=== PATIENT | male | born 1985 ===

== ENCOUNTER 2021-03-11 02:38 | Emergency (ER) | payer OTHER ==
[2021-03-11 08:10] LABS: Absolute Lymphocytes (CBC) 2.3 K/uL (0.7-4.9); Basophils % 1.2 % (0-1.3); Hematocrit 51.8 % (39.6-49.0); Lymphocytes % 31.2 % (15.3-44.8); MPV 7.9 fL (7.6-11.3); RBC Red Blood Cell Count 5.73 M/uL (4.33-5.43)
[2021-03-11 08:44] LABS: ALT/SGPT 24 U/L (12-78); AST/SGOT 20 U/L (15-37); Albumin 4.4 g/dL (3.4-5.0); Alkaline Phosphatase 81 U/L (45-117); BUN Blood Urea Nitrogen 11 mg/dL (7-18); Bicarbonate 27 mmol/L (21-32); Bilirubin Direct 0.2 mg/dL (0-0.2); Bilirubin Total 1.1 mg/dL (0.2-1.0); Glucose Level 92 mg/dL (74-106); Magnesium 2.2 mg/dL (1.8-2.4); NT PRO-BNP 10 pg/mL (<125); Potassium 4.1 mmol/L (3.5-5.1); Sodium Level 141 mmol/L (136-145); Troponin (Emerg Dept Use Only) < 0.02 ng/mL (0.0-0.045)
--- NOTE | 2021-03-11 08:44 | RAD REPORT ---
EXAM DESCRIPTION: RAD - Chest Single View - 03/11/2021 8:30 am CLINICAL HISTORY: CHEST PAIN COMPARISON: No comparisons FINDINGS: No evidence of edema or pneumonia. The heart size is within normal limits.No acute osseous abnormality. No significant pleural effusions or pneumothorax. IMPRESSION: No acute cardiopulmonary disease.
--- NOTE | 2021-03-11 08:58 | EDPHYS ---
Physician Documentation [facility] Name: Fabricio Gamboa Jr Age: 35 yrs Sex: Male : 1985 Arrival Date: 03/11/2021 Time: 02:46 Bed 13 Private MD: ED Physician Triston Baptiste HPI: 03/11 07:46 This 35 yrs old Male presents to ER via Ambulatory with complaints of Chest Pressure, kb Dizziness. 07:46 The patient or guardian reports chest pain that is located primarily in the anterior kb chest wall, bilaterally. The pain does not radiate. Associated signs and symptoms: Pertinent positives: dizziness, shortness of breath. The chest pain is described as a heaviness. Duration: The patient or guardian reports multiple episodes, that are intermittent, with no pattern. Modifying factors: The symptoms are alleviated by nothing. the symptoms are aggravated by nothing. Severity of pain: At its worst the pain was moderate in the emergency department the pain has resolved. The patient has not experienced similar symptoms in the past. The patient has not recently seen a physician. Pt reports intermittent chest heaviness that started 2 weeks ago. States he sometimes has shortness of breath with it and other times has dizziness with it. Denies any cardiac history. Pt reports symptoms are resolved at this time. . Historical: - Allergies: 03:28 No Known Allergies; bb - Home Meds: 03:28 phentermine oral [Active]; bb 03:30 testosterone [Active]; bb - PMHx: 03:28 None; bb - PSHx: 03:28 None; bb - Immunization history:: Adult Immunizations up to date, Client reports having NOT received the Covid vaccine. - Social history:: Smoking status: Patient denies any tobacco usage or history of. Patient uses alcohol, occasionally. Patient/guardian denies using street drugs. ROS: 07:45 Constitutional: Negative for fever, chills, and weight loss. kb 07:45 Cardiovascular: Positive for chest pain, Negative for edema, orthopnea, palpitations, paroxysmal nocturnal dyspnea. 07:45 Respiratory: Positive for shortness of breath. 07:45 All other systems are negative. 07:46 Neuro: Positive for dizziness. kb Exam: 07:45 Constitutional: This is a well developed, well nourished patient who is awake, alert, kb and in no acute distress. Head/Face: Normocephalic, atraumatic. ENT: Moist Mucous membranes Cardiovascular: Regular rate and rhythm with a normal S1 and S2. No gallops, murmurs, or rubs. No pulse deficits. Respiratory: Respirations even and unlabored. No increased work of breathing, no retractions or nasal flaring. Abdomen/GI: Soft, non-tender. No distention Skin: Warm, dry with normal turgor. Normal color. MS/ Extremity: Pulses equal, no cyanosis. Neurovascular intact. Full, normal range of motion. Neuro: Awake and alert, GCS 15, oriented to person, place, time, and situation. Moves all extremities. Normal gait. Psych: Awake, alert, with orientation to person, place and time. Behavior, mood, and affect are within normal limits. 07:56 ECG was reviewed by the Attending Physician. Vital Signs: 03:25 BP 137 / 94; Pulse 77; Resp 16 S; Temp 98.2(O); Pulse Ox 100% on R/A; Weight 107.95 kg bb (R); Height 5 ft. 10 in. (177.80 cm) (R); Pain 0/10; 07:43 BP 141 / 91; Pulse 63; Resp 13; Pulse Ox 100% ; bp 03:25 Body Mass Index 34.15 (107.95 kg, 177.80 cm) bb MDM: 07:16 Patient medically screened. 07:45 Data reviewed: vital signs, nurses notes. Data interpreted: Pulse oximetry: on room air kb is 100 %. Interpretation: normal. 08:56 Counseling: I had a detailed discussion with the patient and/or guardian regarding: the kb historical points, exam findings, and any diagnostic results supporting the discharge/admit diagnosis, lab results, radiology results, the need for outpatient follow up, a family practitioner, to return to the emergency department if symptoms worsen or persist or if there are any questions or concerns that arise at home. ED course: Pt continues to be symptom free. Educated to follow up with PCP/cardiology for further evaluation. Verbal understanding received. . 03/11 05:44 Order name: SARS-COV-2 RT PCR; Complete Time: 07:14 EDMS 03/11 07:23 Order name: Basic Metabolic Panel 03/11 07:23 Order name: CBC with Diff; Complete Time: 08:15 kb 03/11 07:23 Order name: LFT's; Complete Time: 08:47 kb 08 07:23 Order name: Magnesium; Complete Time: 08:47 kb 08 07:23 Order name: NT PRO-BNP; Complete Time: 08:47 kb 08 07:23 Order name: PT-INR kb 08 07:23 Order name: Troponin (emerg Dept Use Only); Complete Time: 08:47 kb 08 07:23 Order name: XRAY Chest (1 view); Complete Time: 08:47 kb 08 07:23 Order name: EKG; Complete Time: 07:23 kb 08 07:23 Order name: Cardiac monitoring; Complete Time: 07:58 kb 08 07:23 Order name: EKG - Nurse/Tech; Complete Time: 07:58 kb 08 07:23 Order name: Basic Metabolic Panel; Complete Time: 08:47 EDMS 08 07:23 Order name: IV Saline Lock; Complete Time: 07:58 kb 08 07:23 Order name: Labs collected and sent; Complete Time: 07:58 kb 08 07:23 Order name: O2 Per Protocol; Complete Time: 07:58 kb 08 07:23 Order name: O2 Sat Monitoring; Complete Time: 07:58 kb EC:56 Rate is 63 beats/min. Rhythm is regular. QRS [place] is Normal. LA interval is normal at kb 146 msec. QRS interval is normal at 108 msec. QT interval is normal at 394 msec. Administered Medications: No medications were administered Disposition: 03/12 07:39 Co-signature as Attending Physician, Triston Baptiste MD I agree with the assessment and tess plan of care. Disposition Summary: 03/11/21 08:57 Discharge Ordered Location: Home kb Condition: Stable kb Diagnosis - Chest pain, unspecified kb Followup: kb - With: Emergency Department - When: As needed - Reason: Worsening of condition Followup: kb - With: Private Physician - When: 2 - 3 days - Reason: Recheck today's complaints, Continuance of care, Re-evaluation by your physician Discharge Instructions: - Discharge Summary Sheet kb - Nonspecific Chest Pain, Adult, [id number] kb Forms: - Medication Reconciliation Form kb - Thank You Letter kb - Antibiotic Education kb - Prescription Opioid Use kb - Work release form iw Signatures: Dispatcher [employer] Lucie Eugene, PROFESSOR OF MUSICOLOGY-C ED-Triston Bagley MD MD cha Ballard, Brenda RN RN bb Corrections: (The following items were deleted from the chart) 03/11 03:29 03:28 Home Meds: None; mervin jeffries
--- NOTE | 2021-03-11 08:58 | ER ---
Nurse's Notes [facility] Name: Fabricio Gamboa Jr Age: 35 yrs Sex: Male : 1985 Arrival Date: 03/11/2021 Time: 02:46 Bed 13 Private MD: Diagnosis: Chest pain, unspecified Presentation: 03/11 03:25 Chief complaint: Patient states: for the last week and a half he has had random bouts bb of shortness of breath, gets dizzy, chest feels heavy. Coronavirus screen: shortness of breath, Client presents with at least one sign or symptom that may indicate coronavirus-19. Standard/surgical mask placed on the client. Ebola Screen: No symptoms or risks identified at this time. Initial Sepsis Screen: Does the patient meet any 2 criteria? No. Patient's initial sepsis screen is negative. Does the patient have a suspected source of infection? No. Patient's initial sepsis screen is negative. Risk Assessment: Do you want to hurt yourself or someone else? Patient reports no desire to harm self or others. Onset of symptoms was March 01, 2021. 03:25 Method Of Arrival: Ambulatory bb 03:25 Acuity: VANESSA 3 bb Triage Assessment: 03:28 General: Appears in no apparent distress. Behavior is calm, cooperative. Pain: Denies bb pain. Neuro: Level of Consciousness is awake, alert, obeys commands, Oriented to person, place, time, situation. Cardiovascular: Capillary refill < 3 seconds Patient's skin is warm and dry. Respiratory: Respiratory effort is even, unlabored, Respiratory pattern is regular. GI: No signs and/or symptoms were reported involving the gastrointestinal system. Derm: Skin is pink, warm \T\ dry. Musculoskeletal: Circulation, motion, and sensation intact. Historical: - Allergies: 03:28 No Known Allergies; bb - Home Meds: 03:28 phentermine oral [Active]; bb 03:30 testosterone [Active]; bb - PMHx: 03:28 None; bb - PSHx: 03:28 None; bb - Immunization history:: Adult Immunizations up to date, Client reports having NOT received the Covid vaccine. - Social history:: Smoking status: Patient denies any tobacco usage or history of. Patient uses alcohol, occasionally. Patient/guardian denies using street drugs. Screenin:30 Abuse screen: Denies threats or abuse. Denies injuries from another. Nutritional bp screening: No deficits noted. Tuberculosis screening: No symptoms or risk factors identified. Fall Risk None identified. Assessment: 07:30 General: SEE TRIAGE NOTE. bp 09:24 Pain: Pain began 1 day ago. iw Vital Signs: 03:25 BP 137 / 94; Pulse 77; Resp 16 S; Temp 98.2(O); Pulse Ox 100% on R/A; Weight 107.95 kg bb (R); Height 5 ft. 10 in. (177.80 cm) (R); Pain 0/10; 07:43 BP 141 / 91; Pulse 63; Resp 13; Pulse Ox 100% ; bp 03:25 Body Mass Index 34.15 (107.95 kg, 177.80 cm) bb ED Course: 02:46 Patient arrived in ED. bp1 03:27 Triage completed. bb 03:28 Arm band placed on Patient placed in waiting room, Patient notified of wait time. Labs bb ordered per protocol. 07:15 Lucie Andrade FNP-C is [facility]. kb 07:15 Triston Baptiste MD is Attending Physician. kb 07:17 Gideon Chavez, JENNIFER is Primary Nurse. bp 07:30 Patient has correct armband on for positive identification. Bed in low position. Call bp light in reach. Side rails up X2. java j2ee technical lead on. Pulse ox on. NIBP on. 07:55 Inserted saline lock: 20 gauge in left antecubital area, using aseptic technique. Blood bp collected. 08:30 XRAY Chest (1 view) In Process Unspecified. EDMS 09:23 No provider procedures requiring assistance completed. IV discontinued, intact, iw bleeding controlled, No redness/swelling at site. Pressure dressing applied. Patient maintains SpO2 saturation greater than 95% on room air. Administered Medications: No medications were administered Outcome: 08:57 Discharge ordered by . kb 09:24 Discharged to home ambulatory. iw 09:24 Condition: good 09:24 Discharge instructions given to patient, Instructed on discharge instructions, follow up and referral plans. Demonstrated understanding of instructions, follow-up care. 09:24 Patient left the ED. iw Signatures: Dispatcher [employer] EDMS Lucie Andrade FNP-C FNP-Ckb Ballard, Brenda, RN Renetta Soto RN RN iw Peltier, Brian, RN RN bp Paniauga, Brittany [facility] Corrections: (The following items were deleted from the chart) 03:29 03:28 Home Meds: None; mervin jeffries
[2021-03-11 09:33] VITALS: TEMP 98.2; O2SAT 100
[2021-03-11 09:35] VITALS: BP 141/91
== END 2021-03-11 09:24 | disposition home or self-care (01) ==
LOC: ER 02:38
DX: R07.9 Chest pain, unspecified (principal); Z20.822 Contact with and (suspected) exposure to COVID-19
CPT/HCPCS: 93005; 85025; 80048; 36415; 83735; 85610; 80076; 84484; 83880; 71045; 99285; U0003